=== PATIENT | female | born 1995 | race Caucasian/White ===

== ENCOUNTER → 2016-07-21 | Day surgery (SDC) | payer OTHER | LOC: RAD 12:04 | PROVIDERS: ATTEND Orthopaedic Surgery | PROC: BP08ZZZ Plain Radiography of Right Shoulder (ICD-10-PCS; principal; 2016-07-21) | DX: S43.431A Superior glenoid labrum lesion of right shoulder, initial encounter (principal); X58.XXXA Exposure to other specified factors, initial encounter | CPT/HCPCS: 73222; 73040; 77002; A9576 ==